=== PATIENT | male | born 1975 | race Caucasian/White ===

== ENCOUNTER 2023-02-09 08:30 | Outpatient (RCR) | payer OTHER, SELFPAY ==
--- NOTE | 2022-07-22 11:46 | PC.NURSE ---
In reviewing Remicade orders it was noted that pt had received Methylprednisolone 40 mg IV as a pre-med for Remicade infusion in [place], however, this was not checked on his order set for [facility]. RN got verbal confirmation from Dr. Westbrook's team that he should be getting Methylprednisolone 40 mg IV pre-med along with Tylenol and Benadryl (oral). Leticia Weinberg APRN, BIOLOGIST will add this to his treatment plan.
--- NOTE | 2022-07-26 14:51 | URNOTE ---
Infliximab (J1745) has been approved for ONE DOSE, -10/23/2022. Case #[id number]. Additional doses will need to be given in a physicians office, infusion center or home setting unless medical necessity for a hospital-based site of care is met. see scanned letter
--- NOTE | 2022-07-30 09:22 | ONC.NURNOTE ---
Infliximab infusion Mr. Zaidi will be receiving infliximab infusion here in the [facility]. He was informed that insurance will only cover 1 dose at our infusion center. Subsequent infusions will need to be at a free standing infusion center, or home health care agency. I shared with Mr Zaidi after speaking with the nursing team for his GI provider at [facility], that they would refer patients to [facility], [facility] or [facility]. They also work with most home care agencies. He states he will follow up with them or will look for a different GI provider. I also informed him that I had reached out for titration instructions for a rapid 90 minute infusion, that they do at the [facility] infusion center. Finally I confirmed premeds. He is NOT taking benadryl. He IS taking tylenol and the IV methylprednisone.
[2022-08-25] MEDS: ACETAMINOPHEN 325 MG TABLET 650 MG PO (08:20)
[2022-08-25] MEDS: METHYLPREDNISOLONE SOD SUCC 40 MG/ML IVP (08:34)
[2022-08-25] MEDS: 0.9 % SODIUM CHLORIDE 250 ml 250 ML 35 ML IV (08:34)
[2022-08-25 08:51] VITALS: BP 132/88; PULSE 78; RESP 16; TEMP 36.6; O2SAT 97
[2022-08-25 09:15] VITALS: BP 136/77; PULSE 78; RESP 16; TEMP 36.2; O2SAT 98
--- NOTE | 2022-08-25 12:12 | ONC.NURNOTE ---
bp 133/89. Roshan states he is not on BP meds . states he has a family history of HTN. Encouraged him to monitor and follow up with his primary.
--- NOTE | 2022-10-12 13:32 | ONC.NURNOTE ---
Request from patient for site of service exception for infliximab infusions Mr. Zaidi has medical diagnosis of Crohn's Disease and receives infliximab infusions to control his disease. He called today to report that he has been unable to locate a free standing infusion center in the [facility] that will accept outside orders for his infliximab infusions. They have all told him that he needs to establish care with them. He is unable to do this before his next infliximab infusion next week. He contacted his insurance company who recommend that he request for us to submit a site of care exception and sweetie it as urgent with hope that he can be approved for an infusion at our infusion clinic next week Tuesday at 1:15pm. Appreciate assistance of to do this for patient.
--- NOTE | 2022-10-13 12:09 | URNOTE ---
Request received for authorization for Infliximab ([id number]). Prior authorization is approved Infliximab, excludes biosimilar, 10mg from 10/12/2022 to 03/06/2023 per [employer].
[2022-10-20 13:42] VITALS: BP 148/71; PULSE 71; RESP 18; TEMP 36.5; O2SAT 99
[2022-10-20] MEDS: ACETAMINOPHEN 325 MG TABLET 650 MG PO (14:00)
[2022-10-20] MEDS: 0.9 % SODIUM CHLORIDE 250 ml 250 ML 35 ML IV (14:03)
[2022-10-20] MEDS: METHYLPREDNISOLONE SOD SUCC 62.5 MG/ML (125) 40 MG IVP (14:10)
[2022-12-15 08:45] VITALS: BP 142/80; PULSE 79; RESP 16; TEMP 36.2; O2SAT 97
[2022-12-15] MEDS: ACETAMINOPHEN 325 MG TABLET 650 MG PO (08:55)
[2022-12-15] MEDS: METHYLPREDNISOLONE SOD SUCC 40 MG/ML IVP (08:55)
[2022-12-15] MEDS: 0.9 % SODIUM CHLORIDE 250 ml 250 ML 35 ML IV (08:55)
[2023-02-09 08:47] VITALS: BP 132/86; PULSE 94; RESP 16; TEMP 35.8
[2023-02-09] MEDS: 0.9 % SODIUM CHLORIDE 250 ml 250 ML 35 ML IV (08:51)
[2023-02-09] MEDS: ACETAMINOPHEN 325 MG TABLET 650 MG PO (08:51)
[2023-02-09] MEDS: METHYLPREDNISOLONE SOD SUCC 40 MG/ML IVP (09:04)
== END 2023-02-21 23:59 | disposition home or self-care (01) ==
LOC: CCIC 08:30
PROVIDERS: Visit Provider Clinical Nurse Specialist
DX: K50.90 Crohn's disease, unspecified, without complications (principal)
CPT/HCPCS: 96365; 96376; 96413; 96415; A9270; J2920; J2930; J7050

== ENCOUNTER 2023-08-17 09:40 | Outpatient (CLI) | payer OTHER, SELFPAY ==
--- NOTE | 2023-08-17 11:50 | MR_ITS ---
[address] [address] Phone:?[phone] Fax:?[phone] Referring Physician Information: ROSA Duval [address] [facility] [address] Phone:?[phone] Fax:?[phone] Patient:Ceci Zaidi D.O.B:?1975 Sex:?Male Phone:?[phone] [facility] MRN:?[id number] Exam Date:?08/17/2023 EXAM: MRI EXAMINATION OF THE RIGHT HIP CLINICAL INFORMATION: Right hip pain. Injury. No history of surgery to this area. Possible stress fracture. TECHNICAL INFORMATION: Large [id number] coronal T1 and STIR images were obtained. Thin section coronal and sagittal proton density and T2-weighted spin echo sequences were obtained through the right hip followed by oblique axial proton density and axial fat saturation proton density images. There are no prior studies available for comparison. INTERPRETATION: Hip joint: There is no evidence of hip joint effusion or loose body. No subchondral edema signal or cystic change. No discrete lesion identified to indicate AVN. No evidence of marrow edema pattern to indicate fracture or stress reaction of the femoral neck. There is no evidence for a hip joint chondral defect. No other advanced changes of hip joint chondromalacia. There is undersurface irregularity and poorly defined tearing involving the superior aspect of the labrum. This continues 6 mm into the anterosuperior labrum. There is no evidence for a paralabral cyst. There is abnormal bony prominence identified involving the anterosuperior femoral head/neck junction. No evidence for acetabular retroversion. The gluteus tendon insertions onto the greater trochanter are intact without tear or significant tendinopathy. There are mild changes of edema signal associated with the tendon insertions. Intact appearance of the iliopsoas muscle and tendon insertions. No evidence for iliopsoas bursitis. Bones and joints: No evidence for an occult fracture/stress reaction involving the sacrum. There are no appreciable changes of SI joint arthrosis. There is no evidence for a fracture. No abnormal marrow edema pattern to indicate occult stress reaction or stress fracture. Musculotendinous structures: No evidence of acute musculotendinous injury. Specifically, no evidence of acute muscle tear, hematoma or other edema pattern. Intrapelvic contents: No free fluid seen within the pelvis. No discrete intrapelvic mass is identified. Neurovascular structures: No discrete cyst, mass or other compression upon the portions visualized of sciatic or femoral nerves. CONCLUSION: 1. Undersurface irregularity and poorly defined tearing involves the superior labrum and continues 6 mm into the anterosuperior labrum. No paralabral cyst. 2. 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 3. No evidence for a right hip joint chondral defect or other advanced changes of hip joint chondromalacia. 4. No evidence for occult fracture/stress reaction. No evidence for AVN. 5. Mild soft tissue edema signal associated with the gluteus tendon insertions onto the greater trochanter, may be related to a component of tendinitis. KES Electronically signed on 08/17/2023 3:59:00 PM by Marco A Grady M.D.
== END 2023-08-17 09:41 | disposition home or self-care (01) ==
LOC: MRI 09:41
PROVIDERS: Visit Provider Physician Assistant Surgical
DX: M25.551 Pain in right hip (principal); S43.491A Other sprain of right shoulder joint, initial encounter; M84.359A Stress fracture, hip, unspecified, initial encounter for fracture
CPT/HCPCS: 73721

== ENCOUNTER 2023-10-05 11:30 | Outpatient (RCR) | payer OTHER, SELFPAY | END 2024-02-02 23:59 | disposition home or self-care (01) | PROVIDERS: Visit Provider Physician Assistant Surgical | DX: M25.851 Other specified joint disorders, right hip (principal); S73.191A Other sprain of right hip, initial encounter; S73.101A Unspecified sprain of right hip, initial encounter; R52 Pain, unspecified; R26.9 Unspecified abnormalities of gait and mobility; R53.1 Weakness; Z51.89 Encounter for other specified aftercare | CPT/HCPCS: 97110; 97140; 97161 ==

== ENCOUNTER 2023-11-22 09:16 | Outpatient (CLI) | payer OTHER, SELFPAY | END 2023-11-22 09:17 | disposition home or self-care (01) | PROVIDERS: Visit Provider Family Medicine | DX: I10 Essential (primary) hypertension (principal); Z12.5 Encounter for screening for malignant neoplasm of prostate | CPT/HCPCS: 80048; 80061; G0103 ==

== ENCOUNTER 2024-01-24 12:48 | Outpatient (CLI) | payer OTHER, SELFPAY | END 2024-01-24 12:49 | disposition home or self-care (01) | LOC: NFLDREF 01-28 03:12 | PROVIDERS: PCP Family Medicine; Referring Provider Family Medicine; Visit Provider Family Medicine | DX: I10 Essential (primary) hypertension (principal) | CPT/HCPCS: 80048 ==

== ENCOUNTER 2024-08-20 19:52 | Outpatient (CLI) | payer OTHER, SELFPAY ==
--- NOTE | 2024-08-20 20:26 | PC.NURSE ---
Accessed patient chart with patient permission to print lab labels for culture
== END 2024-08-20 19:53 | disposition home or self-care (01) ==
PROVIDERS: PCP Family Medicine; Visit Provider Family Medicine
DX: K50.10 Crohn's disease of large intestine without complications (principal)
CPT/HCPCS: 87070; 87186

== ENCOUNTER 2025-01-28 09:57 | Outpatient (CLI) | payer OTHER, SELFPAY | END 2025-01-28 09:58 | disposition home or self-care (01) | PROVIDERS: PCP Family Medicine; Visit Provider Family Medicine | DX: I10 Essential (primary) hypertension (principal); Z12.5 Encounter for screening for malignant neoplasm of prostate | CPT/HCPCS: 80048; 80061; 82043; 82565; 82570; 82610; 84443; G0103 ==